=== PATIENT | female | born 1990 | race Caucasian/White ===

== ENCOUNTER 2019-04-18 07:33 | Emergency (ER) | payer BC, SELFPAY ==
[2019-04-18 08:25] LABS: #Basophils 0.1 thou/uL (0.0-0.2); #Eosinphils 0.3 thou/uL (0.0-0.7); #Lymphocytes 1.8 thou/uL (1.20-3.40); #Monocytes 0.6 thou/uL (0.11-0.59); #Neutrophils 7.6 thou/uL (1.40-6.50); %Basophils 0.5 % (0.0-1.0); %Eosinophils 3.2 % (0.0-10.0); %Lymphocytes 17.3 % (21.0-51.0); %Monocytes 5.8 % (0.0-10.0); %Neutrophils 73.3 % (42.0-75.0); Hemoglobin 14.9 g/dL (12.0-16.0); Mean Corpuscular HGB CONC 34.3 g/dL (32.0-36.0); Mean Corpuscular Hemoglobin 28.8 pg (27.0-31.0); Mean Corpuscular Volume 83.8 fL (78.0-98.0); Mean Platelet Volume 8.1 fL (7.4-10.4); Platelet Count 212 thou/uL (130-400); RBC Distribution Width 12.2 % (11.5-14.5); Red Blood Cell (RBC) Count 5.18 mill/uL (4.20-5.40); White Blood Cell (WBC) Count 10.3 thou/uL (4.8-10.8)
[2019-04-18] MEDS ORDERED: Ketorolac Tromethamine 30 MG/ML VIAL ONE (08:36)
[2019-04-18 08:44] LABS: ALT (SGPT) 16 U/L (8-55); AST (SGOT) 14 U/L (5-34); Albumin 4.6 g/dL (3.5-5.0); Alkaline Phosphatase 72 U/L (40-150); Anion Gap 13 mmol/L (10-20); BUN (Urea Nitrogen) 10 mg/dL (7.0-18.7); Bilirubin, Total 0.4 mg/dL (0.2-1.2); Calc. Creatinine Clearance 0 mL/min (70-130); Calcium 9.5 mg/dL (7.8-10.44); Carbon Dioxide 20 mmol/L (22-29); Chloride 108 mmol/L (98-107); Estimated GFR-MDRD 80; Globulin 3.3 g/dL (2.4-3.5); Glucose 94 mg/dL (70-105); Lipase 41 U/L (8-78); Potassium 4.1 mmol/L (3.5-5.1); Protein, Total 7.9 g/dL (6.0-8.3); Sodium 137 mmol/L (136-145)
[2019-04-18 09:25] LABS: Pregnancy Test - Urine (BHCG) Negative (Negative); Pregu Control Background? CLEAR/WHITE (CLR/WHITE); Pregu Control Bar Appear? YES (CONTROL BAR)
[2019-04-18 09:26] LABS: Clarity Clear (Clear)
[2019-04-18 09:27] LABS: Leukocyte Negative (Negative); Nitrite Negative (Negative); Protein, Urine (Dipstick) 30 mg/dL (Neg-Trace)
[2019-04-18 09:28] LABS: Glucose, Urine (Dipstick) Negative (Negative); Urobilinogen 0.2 mg/dL (0.2-1.0)
[2019-04-18 09:29] LABS: Bilirubin Negative (Negative); Blood, Urine Negative (Negative)
[2019-04-18 09:35] LABS: Bacteria/HPF None Seen HPF (None Seen); Hyaline Casts/LPF NONE SEEN LPF (0-3 Hyaline); RBC/HPF 0-3 HPF (0-3); Squamous Epithelial 0-3 HPF (0-3); WBC/HPF 0-3 HPF (0-3)
== END 2019-04-18 09:55 | disposition home or self-care (01) ==
LOC: ERS 07:33
DX: R10.30 Lower abdominal pain, unspecified (principal); I10 Essential (primary) hypertension
CPT/HCPCS: 80053; 81003; 81015; 81025; 83690; 85025; 96374; J1885

== ENCOUNTER 2019-04-18 20:10 | Emergency (ER) | payer SELFPAY ==
[2019-04-18 21:20] LABS: #Eosinphils 0.4 thou/uL (0.0-0.7); #Lymphocytes 2.1 thou/uL (1.20-3.40); #Monocytes 0.8 thou/uL (0.11-0.59); #Neutrophils 10.7 thou/uL (1.40-6.50); %Basophils 0.3 % (0.0-1.0); %Eosinophils 2.8 % (0.0-10.0); %Lymphocytes 14.8 % (21.0-51.0); %Monocytes 5.7 % (0.0-10.0); %Neutrophils 76.4 % (42.0-75.0); Hemoglobin 14.2 g/dL (12.0-16.0); Mean Corpuscular HGB CONC 34.4 g/dL (32.0-36.0); Mean Corpuscular Hemoglobin 28.8 pg (27.0-31.0); Mean Corpuscular Volume 83.8 fL (78.0-98.0); Mean Platelet Volume 7.9 fL (7.4-10.4); Platelet Count 213 thou/uL (130-400); Red Blood Cell (RBC) Count 4.94 mill/uL (4.20-5.40); White Blood Cell (WBC) Count 13.9 thou/uL (4.8-10.8)
[2019-04-18 21:40] LABS: ALT (SGPT) 15 U/L (8-55); AST (SGOT) 13 U/L (5-34); Albumin 4.4 g/dL (3.5-5.0); Alkaline Phosphatase 70 U/L (40-150); Anion Gap 14 mmol/L (10-20); BUN (Urea Nitrogen) 10 mg/dL (7.0-18.7); Bilirubin, Total 0.5 mg/dL (0.2-1.2); Calc. Creatinine Clearance 0 mL/min (70-130); Calcium 9.7 mg/dL (7.8-10.44); Carbon Dioxide 21 mmol/L (22-29); Chloride 107 mmol/L (98-107); Estimated GFR-MDRD 79; Globulin 3.2 g/dL (2.4-3.5); Glucose 103 mg/dL (70-105); Lipase 35 U/L (8-78); Potassium 3.9 mmol/L (3.5-5.1); Protein, Total 7.6 g/dL (6.0-8.3); Sodium 138 mmol/L (136-145)
[2019-04-18 22:26] LABS: Bilirubin Negative (Negative); Blood, Urine Negative (Negative); Clarity CLEAR (Clear); Glucose, Urine (Dipstick) Negative (Negative); Leukocyte Negative (Negative); Nitrite Negative (Negative); Protein, Urine (Dipstick) 30 mg/dL (Neg-Trace); Specific Gravity, Urine 1.038 (1.002-1.036)
[2019-04-18 22:28] LABS: Pregnancy Test - Urine (BHCG) Negative (Negative); Pregu Control Background? CLEAR/WHITE (CLR/WHITE); Pregu Control Bar Appear? YES (CONTROL BAR); Specific Gravity 1.038 (1.002-1.036)
[2019-04-18 22:29] LABS: Bacteria/HPF Rare-Few HPF (None Seen); Hyaline Casts/LPF 0-3 HYALINE CAST LPF (0-3 Hyaline); RBC/HPF 0-3 HPF (0-3)
[2019-04-18 22:39] LABS: Yeast-All Forms None Seen HPF (None Seen)
--- NOTE | 2019-04-18 23:53 | ULT ---
Pelvic ultrasound. HISTORY: Pelvic pain. Multiple longitudinal and transverse images of the pelvis is obtained using multi hertz curvilinear t ransducer. Real-time, color flow and spectral waveform Doppler analysis used to evaluate the pelvis. The uterus is of normal contour accident size measuring 8.5 x 3.2 x 5.7 cm. No evidence of uterine ma sses seen. Both ovaries visualized. Both ovaries are unremarkable. The right ovary measures 4.3 x 2.9 x 2.8 cm w hile the left ovary measures 4.5 x 2.2 x 2.9 cm. No evidence of free pelvic fluid seen. IMPRESSION: Normal pelvic ultrasound.
[2019-04-18] MEDS ORDERED: Morphine 4 MG/ML VIAL ONE (23:55)
[2019-04-18] MEDS ORDERED: Ketorolac Tromethamine 30 MG/ML VIAL ONE (23:55)
--- NOTE | 2019-04-19 08:51 | CT ---
PRELIMINARY REPORT/[facility]/EMERGENCY AFTER HOURS PROCEDURE: EXAM: CT Abdomen and Pelvis With Contrast EXAM DATE/TIME: 04/19/2019 12:26 AM CLINICAL HISTORY: 29 years old, female; Abdominal pain; Patient HX: Er 3. No previous in pacs. 29 y/o F presents to ED C/O x 2 days of abd pain. PT was evaluated in ED for her pain this morning as it had worsened on waking today. She was discharged home. PT has taken medications to alleviate bloating, offering no relief. TECHNIQUE: Imaging protocol: Axial computed tomography images of the abdomen and pelvis with intravenous contrast. Coronal reformatted images were created and reviewed. COMPARISON: No relevant prior studies available. FINDINGS: ABDOMEN: Liver: No mass. Gallbladder and bile ducts: No calcified stones. No ductal dilation. Pancreas: No mass or ductal dilation. Spleen: No mass. Adrenals: No mass. Kidneys and ureters: No hydronephrosis. Stomach and bowel: No obstruction or mucosal thickening. Appendix: Normal appendix. PELVIS: Bladder: Normal. Reproductive: Normal. ABDOMEN and PELVIS: Intraperitoneal space: No free air or free fluid. Bones/joints: No suspicious bone lesions. Soft tissues: No acute findings. Vasculature: No abdominal aortic aneurysm. Lymph nodes: No lymphadenopathy. IMPRESSION: No acute findings in the abdomen or pelvis. Thank you for allowing us to participate in the care of your patient. Dictated and Authenticated by: Malaika Myles MD 04/19/2019 1:22 AM Central Time ([place] & [place]) FINAL REPORT CT OF ABDOMEN AND PELVIS PERFORMED WITH INTRAVENOUS CONTRAST ENHANCEMENT: HISTORY: Abdominal pain. FINDINGS: The lung bases are clear. The liver, spleen, pancreas, and gallbladder regions showed no focal findings. Right and left adrenal glands and right and left kidneys are normal in size. No significant periaort ic or mesenteric adenopathy. CT of pelvis performed with contrast enhancement. Follicles are seen involving the adnexa. No free fluid, adenopathy, or mass. The appendix region appears unremarkable. IMPRESSION: 1. No acute abnormalities of the abdomen or pelvis. 2. This report is in agreement with the temporary report issued by [facility]. POS: [facility]
== END 2019-04-19 02:12 | disposition home or self-care (01) ==
LOC: ERS 20:10
DX: R10.30 Lower abdominal pain, unspecified (principal)
CPT/HCPCS: 36415; 74177; 76856; 81025; 83690; 93976; 96361; 96374; 96375; J1885; J2270

== ENCOUNTER 2019-04-19 14:20 | Emergency (ER) | payer SELFPAY ==
[2019-04-19 15:26] LABS: #Eosinphils 0.3 thou/uL (0.0-0.7); #Lymphocytes 1.8 thou/uL (1.20-3.40); #Monocytes 0.7 thou/uL (0.11-0.59); #Neutrophils 5.7 thou/uL (1.40-6.50); %Basophils 0.3 % (0.0-1.0); %Eosinophils 3.8 % (0.0-10.0); %Lymphocytes 20.7 % (21.0-51.0); %Monocytes 8.2 % (0.0-10.0); Hemoglobin 13.7 g/dL (12.0-16.0); Mean Corpuscular HGB CONC 35.2 g/dL (32.0-36.0); Mean Corpuscular Hemoglobin 29.3 pg (27.0-31.0); Mean Corpuscular Volume 83.3 fL (78.0-98.0); Platelet Count 177 thou/uL (130-400); RBC Distribution Width 12.1 % (11.5-14.5); Red Blood Cell (RBC) Count 4.66 mill/uL (4.20-5.40); White Blood Cell (WBC) Count 8.5 thou/uL (4.8-10.8)
[2019-04-19] MEDS ORDERED: Iopamidol 370 76% 50 ML VIAL FS ONE (15:34)
[2019-04-19] MEDS ORDERED: ISOVUE-370 76%-LOCM 1 ML ONE (15:34)
[2019-04-19 15:49] LABS: ALT (SGPT) 14 U/L (8-55); AST (SGOT) 16 U/L (5-34); Albumin 4.4 g/dL (3.5-5.0); Alkaline Phosphatase 73 U/L (40-150); Anion Gap 12 mmol/L (10-20); BUN (Urea Nitrogen) 8 mg/dL (7.0-18.7); Bilirubin, Total 0.6 mg/dL (0.2-1.2); Calc. Creatinine Clearance 0 mL/min (70-130); Calcium 9.5 mg/dL (7.8-10.44); Carbon Dioxide 23 mmol/L (22-29); Chloride 107 mmol/L (98-107); Estimated GFR-MDRD 83; Globulin 3.3 g/dL (2.4-3.5); Glucose 83 mg/dL (70-105); Potassium 3.9 mmol/L (3.5-5.1); Protein, Total 7.7 g/dL (6.0-8.3); Sodium 138 mmol/L (136-145)
--- NOTE | 2019-04-19 17:46 | CT ---
Contrast-enhanced images of the abdomen and pelvis. HISTORY: Patient with abdominal pain worsening. Repeat CT abdomen pelvis performed. IV and oral contrast was given. The lung bases are unremarkable. The liver and spleen are unremarkable. Some areas of hyperdensity seen within the gallbladder concerning for possible gallbladder sludge. Th is can be confirmed using sonography. The pancreas is unremarkable. Adrenal glands unremarkable. The kidneys are unremarkable. No dilated loops of small bowel seen. The colon is unremarkable. A normal appendix is visualized without evidence of appendicitis. IMPRESSION: 1.: Areas of hyperdensity seen within the gallbladder possibly representing gallbladder sludge. 2: No evidence of appendicitis seen. No definite evidence of abdominal or pelvic abscess seen.
== END 2019-04-19 20:06 | disposition home or self-care (01) ==
LOC: ERS 14:20
DX: R10.30 Lower abdominal pain, unspecified (principal); I10 Essential (primary) hypertension
CPT/HCPCS: 74177; 80053; 85025; Q9966; Q9967